=== PATIENT | male | born 1935 ===

== ENCOUNTER 2018-01-30 09:13 | Day surgery (SDC) | payer MEDICARE, BC ==
[2015-05-14 09:27] VITALS: BMI 25.0
[2018-01-30 09:54] LABS: BASO # 0.01 K/mm3 (0.0-2.0); BASO % 0.2 % (0.0-3.0); EOS # 0.1 (0.0-0.7); EOS % 2.7 % (1.5-5.0); GRAN # 3.2 (1.4-6.5); GRAN % 67.6 % (50.0-68.0); HEMOGLOBIN 13.7 g/dL (14.0-18.0); LYMPH # 0.9 (1.2-3.4); LYMPH % 19.8 % (22.0-35.0); MEAN CELL VOLUME 92.6 fl (80.0-105.0); MEAN CORPUSCULAR HEMOGLOBIN 30.7 pg (25.0-35.0); MEAN CORPUSCULAR HGB CONC 33.2 g/dl (31.0-37.0); MEAN PLATELET VOLUME 10.3 fl (7.0-11.0); MONO # 0.5 (0.1-0.6); MONO % 9.7 % (1.0-6.0); RBC 4.46 10^6/uL (3.5-6.1); RED CELL DISTRIBUTION WIDTH 13.5 % (11.5-14.5); WHITE BLOOD COUNT 4.7 10^3/ul (4.5-11.0)
[2018-01-30 09:57] LABS: INR 0.99 (0.93-1.08); PARTIAL THROMBOPLASTIN TIME 30.6 Seconds (25.1-36.5); PROTHROMBIN TIME 11.4 SECONDS (9.4-12.5)
[2018-01-30 10:00] VITALS: O2SAT 99
[2018-01-30 10:08] LABS: BLOOD UREA NITROGEN 23 mg/dL (7-21); CALCIUM 9.2 mg/dL (8.4-10.5); GFR AFRICAN-AMERICAN > 60; GFR NON-AFRICAN AMERICAN > 60
[2018-01-30] MEDS ORDERED: Midazolam 2 MG/2 ML VIAL ONE (10:24)
[2018-01-30] MEDS ORDERED: Iodixanol 320 MG/ML 200 ML BOTTLE IV ONE (10:25)
[2018-01-30] MEDS ORDERED: Nitroglycerin 50mg in D5W 50 MG/250 ML BOTTLE IV ONE (10:25)
[2018-01-30] MEDS ORDERED: Lidocaine 2% Inj (20ml) ONE (10:56)
[2018-01-30] MEDS ORDERED: Iodixanol 320 MG/ML 100 ML BOTTLE IV ONE (12:39)
[2018-01-30] MEDS ORDERED: Oxycodone/Acetaminophen 5/325 mg Tab PO PRN (13:23)
[2018-01-30] MEDS ORDERED: Sodium Chloride 0.45% 1,000 ML IV SCH (13:30)
[2018-01-30 14:27] VITALS: RESP 18; TEMP 97
--- NOTE | 2018-01-30 16:06 | VASCULAR ---
PROCEDURE: 1. Abdominal aortogram and bilateral lower extremity runoff with right selective views P 2. Diffuse right SFA silver Hawk atherectomy and drug-eluting balloon angioplasty 3. Right popliteal artery silver Hawk atherectomy and drug-eluting balloon angioplasty 4. Distal right posterior tibial artery angioplasty 5. Rescue percutaneous suction embolectomy of the right tibioperoneal trunk HISTORY: Severe peripheral vascular disease. Previous bilateral stents. Recurrent short distance right lower extremity claudication. In stent restenosis. PHYSICIAN(S): Sandip Shah M.D. TECHNIQUE: The relative risks and indications of the procedure were explained to the patient and his daughter and consent obtained. The patient was hydrated prior to the procedure and the appropriate labs drawn. The patient was placed supine on the arteriogram table and the left groin prepped and draped in the usual sterile fashion. Conscious sedation and monitoring were provided throughout the procedure by a nurse. Via a left common femoral artery approach, a 5 Tajik sheath was placed in the left groin. Through the sheath and over a guidewire, a 5 Tajik flush catheter was placed in the abdominal aorta at the level of the renal arteries and a PA DSA abdominal aortogram performed. The catheter was pulled down to the aortic bifurcation and bilateral oblique DSA pelvic arteriograms performed. Overlapping bilateral lower extremity DSA arteriograms were obtained from the inguinal ligaments to the feet. A 0.035 angled Glidewire was advanced over the bifurcation and placed in the mid right SFA. A 7 Tajik 45 cm destination sheath was placed in the right external iliac artery.. Heparin 5000 units IV and nitroglycerin in 250 mcg aliquots were given. Diffuse severe stenosis of the right SFA and popliteal arteries was crossed rather easily with a 5 Tajik catheter and angled Glidewire.. Exchange was made for a 0.014 support guidewire. Silver Hawk atherectomy of the right SFA and the right popliteal artery above the knee was performed with an LX catheter. Four long segment passes were performed. An overlapping fashion, the right popliteal artery and right SFA were dilated with 6 mm drug-eluting balloons. An excellent angiographic result was obtained in the right SFA and popliteal arteries. No stent was required. An occlusive embolus was noted in the right tibioperoneal trunk. Successful suction percutaneous embolectomy was performed with a 5 Tajik Trailblazer catheter. She critical short-segment disease of the distal right posterior tibial artery was present. This was crossed with a 0.014 guidewire. Dilatation was performed with a 2.5 x 4 cm balloon. Antegrade flow was re-established. Completion angiograms were obtained. The sheath was removed hemostasis obtained with a Mynx device. The patient tolerated the procedure well. FINDINGS: There are single renal arteries bilaterally which are widely patent and normal in appearance. The nephrograms are symmetric in appearance. The infrarenal abdominal aorta is widely patent without a radiographically significant stenosis. The aortic bifurcation is widely patent. The previously placed bilateral external iliac artery stents are widely patent. The common iliac arteries are patent bilaterally. The internal iliac arteries are small but patent. Right lower extremity: The right common femoral artery is patent. The right profunda femoral artery is hypertrophied. 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 Critical in stent restenosis is noted in the distal right SFA stent. There is a critical stenosis of the right popliteal artery at the patella. The right popliteal artery below patella is patent. There is severe right trifurcation and tibial occlusive disease. The right anterior tibial artery occludes proximally. The right peroneal artery is a predominant supply the ankle and foot. The right posterior tibial artery is small with critical disease distally. Left lower extremity: Left common femoral artery is patent. The left profunda femoral artery is hypertrophied. There is multifocal diffuse disease of the small calcified left SFA. Left popliteal artery is patent. And there is left trifurcation and tibial occlusive disease. The left peroneal artery is from a supply to the foot. There is an occlusion of the distal 3rd of the left posterior tibial artery. The left anterior tibial artery is atretic IMPRESSION: 1.Diffuse successful right SFA and above knee popliteal artery silver Hawk atherectomy and drug-eluting balloon angioplasty 2. Severe bilateral tibial occlusive disease. 3. Successful rescue suction percutaneous embolectomy of the right tibioperoneal trunk. 4. Distal right posterior tibial artery angioplasty 5. Patent bilateral external iliac artery stents.
[2018-01-30 16:35] VITALS: PULSE 53
[2018-01-30 17:45] VITALS: BP 177/65
== END 2018-01-30 18:20 | disposition home or self-care (01) ==
LOC: SDSVAS 09:13
PROVIDERS: ATTEND Radiology Vascular & Interventional Radiology
DX: I70.213 Atherosclerosis of native arteries of extremities with intermittent claudication, bilateral legs (principal); I10 Essential (primary) hypertension; I38 Endocarditis, valve unspecified; Z87.891 Personal history of nicotine dependence; E78.5 Hyperlipidemia, unspecified; M19.90 Unspecified osteoarthritis, unspecified site; H40.9 Unspecified glaucoma; M54.30 Sciatica, unspecified side; H91.90 Unspecified hearing loss, unspecified ear; Z86.010 Personal history of colon polyps; Z95.2 Presence of prosthetic heart valve; Z95.1 Presence of aortocoronary bypass graft; Z95.820 Peripheral vascular angioplasty status with implants and grafts
CPT/HCPCS: 36415; 37186; 37225; 37228; 75625; 75716; 80048; 85025; 85610; 85730; 99152; 99153; C1714; C1725 ×4; C1760 ×2; C1769 ×5; C1887 ×2; C1894 ×2; J1644 ×2; J2250; J2405; J3010; J7030; Q9966; Q9967